=== PATIENT | male | born 1950 | race Caucasian/White ===

== ENCOUNTER 2019-09-28 10:17 | Inpatient (IN) | payer MEDICARE, MEDICAID ==
[~2019-09-28] VITALS: Ht 162.6 cm; Wt 27.7 kg
[2019-09-28] MEDS ORDERED: ONDANSETRON HCL 4MG/2ML INJ IV STA (10:37)
[2019-09-28] MEDS ORDERED: FAMOTIDINE 20MG/2ML VIAL IV ONE (10:45)
[2019-09-28] MEDS ORDERED: MAGNESIUM/ALUMINUM HYDROXIDE/SIMETHICONE 30ML UDC PO ONE (10:45)
[2019-09-28 11:14] LABS: HEMATOCRIT. 35.3 % (42.0-52.0); MEAN CORPUSCULAR HEMOGLOBIN 33.2 pg (28.0-32.0); MEAN CORPUSCULAR VOLUME 97.2 fL (80.0-94.0); MEAN PLATELET VOLUME 8.7 fl (7.4-10.4); PLATELET 218 x1000/uL (130-400); RED BLOOD CELL COUNT 3.63 mill/uL (4.7-6.1); RED CELL DISTRIBUTION WIDTH 15.5 % (11.6-14.6)
[2019-09-28 11:20] LABS: CHLORIDE 94 mEq/L (98-107)
[2019-09-28 11:23] LABS: ETHANOL BLOOD < 10 mg/dL
[2019-09-28 11:25] LABS: INR 1.2; PARTIAL THROMBOPLASTIN TIME 28.2 sec (23.4-31.0); PROTHROMBIN TIME 12.3 sec (9.6-11.0)
[2019-09-28 12:11] LABS: PLATELET ESTIMATE NORMAL
[2019-09-28] MEDS ORDERED: SODIUM POLYSTYRENE SULFONATE 15 G/60 ML BOT PO ONE (13:30)
[2019-09-28 15:00] VITALS: BP 176/67
[2019-09-28] MEDS ORDERED: HYDROCODONE/ACETAMINOPHEN 5/325MG TABLET PO PRN (15:30)
[2019-09-28] MEDS ORDERED: ONDANSETRON HCL 4MG/2ML INJ IV PRN (15:30)
[2019-09-28] MEDS ORDERED: GUAIFENESIN 200MG/10ML SUGAR FREE UDC PO PRN (15:30)
[2019-09-28] MEDS ORDERED: DIPHENHYDRAMINE 50MG/ML VIAL IV PRN (15:30)
[2019-09-28] MEDS ORDERED: IPRATROPIUM/ALBUTEROL 0.5-3(2.5)MG/3ML NEB HHN PRN (15:30)
[2019-09-28] MEDS ORDERED: DOCUSATE SODIUM 100MG CAPSULE PO PRN (15:30)
[2019-09-28] MEDS ORDERED: MAGNESIUM/ALUMINUM HYDROXIDE/SIMETHICONE 30ML UDC PO PRN (15:30)
[2019-09-28] MEDS: CLONIDINE 0.1MG TABLET PO PRN (16:10)
[2019-09-28 17:12] LABS: PHOSPHORUS 7.2 mg/dL (2.5-4.9)
[2019-09-28 20:00] VITALS: BP 179/77
[2019-09-29] VITALS (8 sets, daily range): BP systolic 142–205; BP diastolic 66–95
[2019-09-29] MEDS: CLONIDINE 0.1MG TABLET PO PRN ×2 (00:23→09:43)
[2019-09-29] MEDS ORDERED: HYDR-4134 PO (02:43)
[2019-09-29] MEDS ORDERED: HYDR-459 PO (02:43)
[2019-09-29] MEDS ORDERED: FOLI0.8T23 PO (02:47)
[2019-09-29] MEDS ORDERED: SEVE800T8 PO (02:47)
[2019-09-29] MEDS ORDERED: CLON0.3T PO (02:47)
[2019-09-29] MEDS ORDERED: LOSA1TAB40 PO (02:47)
[2019-09-29] MEDS ORDERED: PANT40TA4 PO (02:47)
[2019-09-29 07:00] LABS: BASOPHILS % 0.4 % (0.0-2.0); HEMATOCRIT. 33.2 % (42.0-52.0); HEMOGLOBIN. 11.3 g/dL (14.0-18.0); LYMPHOCYTES % 8.3 % (20.0-50.0); MEAN CORPUSCULAR HEMOGLOBIN 33.3 pg (28.0-32.0); MEAN CORPUSCULAR VOLUME 97.4 fL (80.0-94.0); MEAN PLATELET VOLUME 8.8 fl (7.4-10.4); MONOCYTES % 11.6 % (2.0-8.0); NEUTROPHILS % 78.7 % (40.0-76.0); PLATELET 196 x1000/uL (130-400); RED CELL DISTRIBUTION WIDTH 15.5 % (11.6-14.6)
[2019-09-29 07:22] LABS: CHLORIDE 103 mEq/L (98-107)
[2019-09-29 07:32] LABS: LDL CHOLESTEROL 82 mg/dL (5-100)
[2019-09-29 07:34] LABS: HDL CHOLESTEROL 34 mg/dL (40-59)
[2019-09-29] MEDS ORDERED: CLONIDINE 0.1MG TABLET PO PRN (12:00)
[2019-09-29] MEDS: SEVELAMER CARBONATE 800 MG TABLET PO SCH ×2 (13:41→19:00)
[2019-09-29] MEDS: FOLIC ACID/VITAMIN B COMP W-C TABLET PO SCH (13:41)
[2019-09-29] MEDS: DILTIAZEM HCL 60MG TABLET PO SCH ×3 (13:48→23:41)
[2019-09-29] MEDS: LOSARTAN POTASSIUM 50 MG TABLET PO SCH (13:48)
[2019-09-29] MEDS ORDERED: PERMETHRIN 5% CREAM 60GM TOP SCH (18:00)
[2019-09-29] MEDS: FAMOTIDINE 20MG TABLET PO SCH (18:59)
[2019-09-29] MEDS: ACETAMINOPHEN 325MG TABLET PO PRN (23:42)
[2019-09-30] VITALS (11 sets, daily range): BP systolic 104–228; BP diastolic 63–95
[2019-09-30 06:44] LABS: BASOPHILS % 0.7 % (0.0-2.0); EOSINOPHILS % 1.9 % (0.0-5.0); HEMATOCRIT. 34.7 % (42.0-52.0); HEMOGLOBIN. 11.8 g/dL (14.0-18.0); LYMPHOCYTES % 9.7 % (20.0-50.0); MEAN CORPUSCULAR HEMOGLOBIN 32.9 pg (28.0-32.0); MEAN CORPUSCULAR VOLUME 97.2 fL (80.0-94.0); MEAN PLATELET VOLUME 9.3 fl (7.4-10.4); MONOCYTES % 12.1 % (2.0-8.0); NEUTROPHILS % 75.6 % (40.0-76.0); PLATELET 193 x1000/uL (130-400); RED BLOOD CELL COUNT 3.57 mill/uL (4.7-6.1); RED CELL DISTRIBUTION WIDTH 15.7 % (11.6-14.6)
[2019-09-30] MEDS: DILTIAZEM HCL 60MG TABLET PO SCH ×4 (07:03→23:33)
[2019-09-30 07:29] LABS: CHLORIDE 106 mEq/L (98-107)
[2019-09-30] MEDS: SEVELAMER CARBONATE 800 MG TABLET PO SCH ×3 (07:40→19:02)
[2019-09-30] MEDS: LOSARTAN POTASSIUM 50 MG TABLET PO SCH (08:35)
[2019-09-30] MEDS: FAMOTIDINE 20MG TABLET PO SCH (08:36)
[2019-09-30] MEDS ORDERED: BARIUM SULFATE(VOLUMEN) 450 ML ORAL.SUSP ONE (09:08)
[2019-09-30] MEDS ORDERED: EZ-HD SUSPENSION(BARIUM SULFATE 340GM) PO ONE (09:08)
[2019-09-30] MEDS ORDERED: BARIUM SULFATE 176 GM SUSP.RECON ONE (09:10)
[2019-09-30] MEDS ORDERED: SIMETHICONE/SOD BICARB/CIT AC 1 EACH GRAN.EF.PK ONE (09:12)
[2019-09-30] MEDS: FOLIC ACID/VITAMIN B COMP W-C TABLET PO SCH (13:24)
[2019-09-30] MEDS ORDERED: DILT60TA35 PO (15:25)
[2019-09-30] MEDS ORDERED: LOSA50TA3 PO (15:26)
[2019-09-30] MEDS: CLONIDINE 0.1MG TABLET PO PRN (15:58)
[2019-09-30] MEDS: HYDRALAZINE 20MG/ML VIAL IV PRN (17:12)
[2019-10-01] VITALS (8 sets, daily range): BP systolic 142–206; BP diastolic 71–82
[2019-10-01] MEDS: HYDRALAZINE 20MG/ML VIAL IV PRN (00:54)
[2019-10-01] MEDS: CLONIDINE 0.1MG TABLET PO PRN ×2 (03:59→18:08)
[2019-10-01] MEDS: DILTIAZEM HCL 60MG TABLET PO SCH (04:44)
[2019-10-01 06:45] LABS: HEMATOCRIT. 35.7 % (42.0-52.0); HEMOGLOBIN. 12.1 g/dL (14.0-18.0); MEAN CORPUSCULAR HEMOGLOBIN 32.5 pg (28.0-32.0); MEAN CORPUSCULAR VOLUME 96.2 fL (80.0-94.0); MEAN PLATELET VOLUME 8.6 fl (7.4-10.4); PLATELET 208 x1000/uL (130-400); RED BLOOD CELL COUNT 3.71 mill/uL (4.7-6.1); RED CELL DISTRIBUTION WIDTH 15.8 % (11.6-14.6)
[2019-10-01] MEDS: LOSARTAN POTASSIUM 50 MG TABLET PO SCH (06:50)
[2019-10-01] MEDS: ACETAMINOPHEN 325MG TABLET PO PRN ×2 (06:50→11:17)
[2019-10-01] MEDS: FAMOTIDINE 20MG TABLET PO SCH (06:50)
[2019-10-01] MEDS: SEVELAMER CARBONATE 800 MG TABLET PO SCH ×2 (08:58→18:19)
[2019-10-01] MEDS: FOLIC ACID/VITAMIN B COMP W-C TABLET PO SCH (08:59)
[2019-10-01 09:57] LABS: PLATELET ESTIMATE NORMAL
[2019-10-01] MEDS: LOSARTAN POTASSIUM 100 MG TABLET PO SCH (14:00)
[2019-10-01] MEDS: DILTIAZEM HCL 180MG CAPSULE CD 24HR PO SCH (21:05)
[2019-10-02] VITALS: BP 154/74
[2019-10-02 04:00] VITALS: BP 151/66
[2019-10-02 06:49] LABS: HEMATOCRIT. 35.7 % (42.0-52.0); MEAN CORPUSCULAR HEMOGLOBIN 33.3 pg (28.0-32.0); MEAN CORPUSCULAR VOLUME 98.8 fL (80.0-94.0); MEAN PLATELET VOLUME 8.9 fl (7.4-10.4); PLATELET 189 x1000/uL (130-400); RED BLOOD CELL COUNT 3.62 mill/uL (4.7-6.1)
[2019-10-02 08:27] VITALS: BP 125/68
[2019-10-02] MEDS: SEVELAMER CARBONATE 800 MG TABLET PO SCH ×2 (08:37→11:52)
[2019-10-02] MEDS: DILTIAZEM HCL 180MG CAPSULE CD 24HR PO SCH (08:38)
[2019-10-02] MEDS: FOLIC ACID/VITAMIN B COMP W-C TABLET PO SCH (08:38)
[2019-10-02] MEDS: FAMOTIDINE 20MG TABLET PO SCH (08:38)
[2019-10-02] MEDS: LOSARTAN POTASSIUM 100 MG TABLET PO SCH (08:38)
[2019-10-02 10:41] LABS: PLATELET ESTIMATE NORMAL
[2019-10-02] MEDS ORDERED: LOSA100T32 MT (10:47)
[2019-10-02] MEDS ORDERED: DILT180C93 MT (10:47)
[2019-10-02] MEDS: CLONIDINE 0.1MG TABLET PO PRN ×2 (11:52→16:18)
[2019-10-02 12:00] VITALS: BP 183/70
[2019-10-02 15:13] VITALS: BP 182/77
[2019-10-02 16:00] VITALS: BP 182/77
[2019-10-02] MEDS: HYDRALAZINE 20MG/ML VIAL IV PRN (16:14)
== END 2019-10-02 18:10 | disposition home or self-care (01) | DRG 205 ==
LOC: ER 10:17 → 8WST 13:43 → EDBEDREQ 13:46 → ENRESERV 14:05
PROVIDERS: ADMIT Internal Medicine; ATTEND Internal Medicine
PROC: 5A1D70Z Performance of Urinary Filtration, Intermittent, Less than 6 Hours Per Day (ICD-10-PCS; principal; 2019-09-28)
PROC: 5A1D70Z Performance of Urinary Filtration, Intermittent, Less than 6 Hours Per Day (ICD-10-PCS; 2019-09-29)
PROC: 5A1D70Z Performance of Urinary Filtration, Intermittent, Less than 6 Hours Per Day (ICD-10-PCS; 2019-10-01)
DX: M94.0 Chondrocostal junction syndrome [Tietze] (principal); N18.6 End stage renal disease; I13.2 Hypertensive heart and chronic kidney disease with heart failure and with stage 5 chronic kidney disease, or end stage renal disease; I24.9 Acute ischemic heart disease, unspecified; Z68.1 Body mass index [BMI] 19.9 or less, adult; K29.70 Gastritis, unspecified, without bleeding; E87.5 Hyperkalemia; E11.22 Type 2 diabetes mellitus with diabetic chronic kidney disease; I50.9 Heart failure, unspecified; I27.20 Pulmonary hypertension, unspecified; D50.9 Iron deficiency anemia, unspecified; J44.9 Chronic obstructive pulmonary disease, unspecified; F22 Delusional disorders; R13.10 Dysphagia, unspecified; K25.9 Gastric ulcer, unspecified as acute or chronic, without hemorrhage or perforation; K21.9 Gastro-esophageal reflux disease without esophagitis; R63.4 Abnormal weight loss; M62.838 Other muscle spasm; Z99.2 Dependence on renal dialysis; Z79.899 Other long term (current) drug therapy; Z87.891 Personal history of nicotine dependence
CPT/HCPCS: 36415; 71045; 74220; 80048; 80061; 80320; 83735; 83880; 84100; 84132; 84443; 84484; 93005; 93306; 93970; 96374; 96375; 99285; J0360; J2405; J3490; J7517; G0480